=== PATIENT | male | born 1965 | race African-American/Black ===

== ENCOUNTER 2018-05-25 11:51 | Emergency (ER) | payer BC ==
[~2018-05-25] VITALS: Ht 177.8 cm; Wt 81.8 kg
[2018-05-25] MEDS ORDERED: BUDE10.2 IH (12:05)
[2018-05-25] MEDS ORDERED: BUPR1FIL7 SL (12:05)
[2018-05-25] MEDS ORDERED: SULFAMETHOX/TRIMETH DS 800-160 MG/TABLET PO ONE (13:30)
[2018-05-25] MEDS ORDERED: PERTUSS(ACELL),DIPH,TET VAC/PF 0.5 ML VIAL IM ONE (13:30)
[2018-05-25 13:39] VITALS: BP 141/88
== END 2018-05-25 13:42 | disposition home or self-care (01) ==
LOC: EMS 11:53
DX: L03.114 Cellulitis of left upper limb (principal); J45.909 Unspecified asthma, uncomplicated; F11.10 Opioid abuse, uncomplicated; F17.220 Nicotine dependence, chewing tobacco, uncomplicated
CPT/HCPCS: 90471; 90715; 99283